=== PATIENT | female | born 1955 | race American Indian/Alaskan Native ===

== ENCOUNTER → 2016-11-23 | Outpatient (CLI) | payer OTHER | LOC: CAT 11:49 | DX: Z13.6 Encounter for screening for cardiovascular disorders (principal) ==

== ENCOUNTER → 2018-03-09 | Outpatient (CLI) | payer OTHER ==
[2018-03-09 08:34] LABS: ABSOLUTE NEUTROPHILS 3.4 thou/uL (1.4-8.2); BASOPHILS 0.5 % (0.0-2.0); EOSINOPHILS 1.9 % (0.0-3.0); HEMOGLOBIN 13.3 gm/dL (12.0-15.0); LYMPHOCYTES 26.4 % (24.0-44.0); MCH 31.7 pg (26.0-34.0); MCHC 34.1 g/dL (28.0-37.0); MCV 92.9 fL (80.0-100.0); MONOCYTES 8.4 % (1.0-8.0); PLATELET COUNT 219 thou/uL (150-400); POLYS 62.8 % (36.0-66.0); RBC 4.19 mil/uL (4.20-5.00); RDW 12.1 % (10.5-14.5); WBC 5.4 thou/uL (4.0-11.0)
[2018-03-09 08:54] LABS: CALCIUM 9.4 mg/dL (8.5-10.1); CREATININE 0.9 mg/dL (0.6-1.0); POTASSIUM 4.2 mmol/L (3.5-5.1); TOTAL BILIRUBIN 0.4 mg/dL (<0.1-1.0)
== END ==
LOC: CAT 08:08
PROVIDERS: Internal Medicine Cardiovascular Disease
DX: I48.91 Unspecified atrial fibrillation (principal); I25.10 Atherosclerotic heart disease of native coronary artery without angina pectoris; J98.11 Atelectasis

== ENCOUNTER 2018-04-01 06:53 | Observation (INO) | payer OTHER ==
[~2018-04-01] VITALS: Ht 167.6 cm; Wt 94.8 kg
[2018-04-01] VITALS (12 sets, daily range): BP systolic 103–136; BP diastolic 40–75
--- NOTE | ~2018-04-01 | EKG ---
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
--- NOTE | ~2018-04-01 | P ---
[facility] [place] [address] PROCEDURE REPORT Name: AFIA DUNBAR Room #: 210-P [facility] M.R.#: [id number] Admission: 04/01/18 Attend Phys: Eliazar Post MD Discharge: 04/02/18 Date of : 53 Report #: [id number] THIS REPORT FOR: //name// CC: Jasmyn Post PREOPERATIVE DIAGNOSIS: Paroxysmal atrial fibrillation. POSTOPERATIVE DIAGNOSIS: Paroxysmal atrial fibrillation. The patient is a 62-year-old with history of paroxysmal atrial fibrillation, here for AFib ablation. PROCEDURES PERFORMED: 1. AFib ablation, CPT code 16959. 2. Program stimulation and pacing after IV, CPT code 65635. 3. 3D mapping EP, CPT code 26142. 4. Intracardiac echo, CPT code 75739. ANESTHESIA: The patient underwent general anesthesia with no anesthesia related complications. DESCRIPTION OF PROCEDURE: The patient underwent informed consent. We discussed the details of the procedure including the risk, which include but not limited to bleeding, vascular damage, cardiac perforation as well as stroke or IL. She understood these risks and was willing to proceed. The patient was brought to the EP laboratory in a fasting and unsedated state and prepped and draped in a sterile fashion. Next, I obtained access to the right femoral vein x 3, placing an 8-British, 9-British and 7-British short sheath using the modified Seldinger technique. Next, under fluoroscopy, I placed a decapolar catheter easily in the coronary sinus and then ice catheter into the right atrium. I performed intracardiac ultrasound and created a detailed 3D geometry of the left atrium using CartoSound and then this was merged with the cardiac CT scan. She had a nice thin interatrial septum. She had a left common ostium and a right superior and right inferior pulmonary vein. The right inferior pulmonary vein had multiple early branches. The patient was systemically heparinized and a transseptal was performed using an SL1 sheath and a Othello needle. I was able to cross into the left atrium with my SL1 sheath and then I placed a Lasso catheter in the left atrium and created a detailed 3D geometry of the left atrium and voltage map which showed activation in all pulmonary veins. Next, I attempted to exchange the SL1 sheath for the cryo sheath. I was not able to advance the cryo sheath into the left atrium. I had some difficulty advancing it because I think the left common ostium made the wire not as stable as would be ideal. Therefore, I exchanged back to the SL1 sheath, placed this in the left atrium and then used a 6 mm x 4 cm Powerflex Cordis balloon, and we dilated the interatrial septum and then, I was able to [facility] [address] [place] [address] PROCEDURE REPORT Name: AFIA DUNBAR WILVER Room #: 210-P [facility] Tan Ozuna#: [id number] Admission: 04/01/18 Attend Phys: Eliazar Post MD Discharge: 04/02/18 Date of : 53 Report #: [id number] easily cross into the left atrium with the cryo sheath. At baseline, the patient was in sinus rhythm with a sinus cycle length of 1140 milliseconds, CA interval 170 milliseconds, QRS duration 88 milliseconds, QT interval 475 milliseconds. Next, I started by isolating the left common ostium. I performed 3 freezes, 3 freezes were each of 4 minutes duration. I first performed 2 freezes within the superior aspect of the common ostium with attempts at -34 degrees. I then performed a third freeze and dragged the balloon down to the inferior portion of the vein and the attempts on this freeze were -44 degrees. These 3 freezes likely isolated the common ostium. I then turned my attention to the right superior pulmonary vein, and I performed phrenic nerve pacing using the decapolar catheter. I performed a 3-minute freeze, followed by 2-minute freeze. The vein isolated within 60 seconds of the first freeze. I then turned my attention to the right inferior pulmonary vein, and I performed a 3-minute freeze followed by a 4-minute freeze, and this vein was also isolated. I then turned my attention back to the left common ostium, and this appeared to still be isolated. Given that this was a common ostium and these typically can reconnect, I performed a fourth freeze and intentionally did a freeze that was not as deep in the vein to try and widen our area of isolation. This freeze only got a temperature of -30 degrees, and this freeze was of 4 minutes duration. I removed the cryo balloon and placed my Lasso catheter into the left atrium and created a detailed 3D geometry and a voltage map, and this clearly demonstrated that we had created a wide circumferential ablation of the left common ostium and the right-sided veins. There was only a small area of activity that remained along the posterior wall. POST-ABLATION FINDINGS: Post-ablation, the patient was in sinus rhythm, EP study was performed and AV block was noted at 370 milliseconds. Atrial ERP was noted at 240 milliseconds, with a [address] cycle length. Isoproterenol was initiated at 1 mcg per minute and AV block was noted at 290 milliseconds. Atrial ERP was noted at 210 milliseconds with a [address] cycle length. No SVT, AFib or atrial flutter was induced. Next, isoproterenol was increased to 2 mcg per minute. An AV block was noted at 240 milliseconds and AV christine ERP was noted at 210 milliseconds with a [address] cycle length. Aggressive atrial pacing was performed, and I could not induce any atrial fibrillation. Post-ablation, the patient was in sinus rhythm with a sinus cycle length of 675 milliseconds. CA interval 160 milliseconds, QRS duration 90 milliseconds, QT interval 365 milliseconds. Using intracardiac ultrasound, I verified that there was no pericardial effusion. The patient then received systemic protamine and once the ACT was within acceptable range, catheters and sheaths were pulled and hemostasis was obtained. The patient awoke neurologically and hemodynamically intact. No complications and no significant bleeding. [facility] [address] [place] [address] PROCEDURE REPORT Name: AFIA DUNBAR Room #: 210-P [facility] Laith#: [id number] Admission: 04/01/18 Attend Phys: Eliazar Post MD Discharge: 04/02/18 Date of : 53 Report #: [id number] CONCLUSIONS: 1. Successful AFib ablation with isolation of the left common ostium in the right superior and right inferior pulmonary veins. 2. Normal EP study with no other inducible arrhythmias on or off isoproterenol. <ELECTRONICALLY SIGNED> By: Eliazar Post MD 04/04/18 1145 1218 1336 Eliazar Post MD /nt
[2018-04-01 07:20] LABS: ABSOLUTE NEUTROPHILS 2.9 thou/uL (1.4-8.2); BASOPHILS 0.7 % (0.0-2.0); EOSINOPHILS 2.1 % (0.0-3.0); HEMATOCRIT 37.5 % (37.0-47.0); HEMOGLOBIN 12.6 gm/dL (12.0-15.0); LYMPHOCYTES 29.9 % (24.0-44.0); MCH 31.3 pg (26.0-34.0); MCHC 33.7 g/dL (28.0-37.0); MCV 92.9 fL (80.0-100.0); PLATELET COUNT 220 thou/uL (150-400); POLYS 59.3 % (36.0-66.0); RBC 4.03 mil/uL (4.20-5.00); RDW 12.5 % (10.5-14.5); WBC 4.8 thou/uL (4.0-11.0)
[2018-04-01] MEDS ORDERED: ELIQUIS5 M1 PO (07:27)
[2018-04-01] MEDS ORDERED: PROSCAR 5MG TABL5 MG PO (07:28)
[2018-04-01] MEDS ORDERED: BIOTIN5 MG PO (07:28)
[2018-04-01] MEDS ORDERED: FLECAINIDE ACET50 M1 PO (07:28)
[2018-04-01] MEDS ORDERED: ZESTORETIC 20-1 EAC3 PO (07:29)
[2018-04-01] MEDS ORDERED: MULTI COMPLETE1 EAC1 PO (07:30)
[2018-04-01] MEDS ORDERED: TOPROL XL100 MG PO (07:30)
[2018-04-01] MEDS ORDERED: LIPITOR 20 MG T20 M1 PO (07:30)
[2018-04-01 07:31] LABS: CALCIUM 9.6 mg/dL (8.5-10.1); CREATININE 0.9 mg/dL (0.6-1.0); POTASSIUM 3.8 mmol/L (3.5-5.1)
[2018-04-01] MEDS ORDERED: TUMS PO (07:31)
[2018-04-01 07:36] LABS: ALBUMIN 3.9 g/dL (3.4-5.0); TOTAL BILIRUBIN 0.5 mg/dL (<0.1-1.0); TOTAL PROTEIN 7.8 g/dL (6.4-8.2)
[2018-04-01 07:42] LABS: APTT 24.5 Seconds (24.5-32.8); PROTIME 9.9 Seconds (9.3-11.4)
[2018-04-01] MEDS ORDERED: TOPROL XL25 MG PO (16:48)
[2018-04-02 00:40] VITALS: BP 128/66
[2018-04-02 05:51] VITALS: BP 130/63
[2018-04-02 07:43] VITALS: BP 120/57
[2018-04-02 09:36] VITALS: BP 120/57
== END 2018-04-02 12:58 | disposition home or self-care (01) ==
LOC: CATH 06:53 → 2N 13:24
PROVIDERS: Internal Medicine Cardiovascular Disease
DX: I48.0 Paroxysmal atrial fibrillation (principal); E11.9 Type 2 diabetes mellitus without complications; I10 Essential (primary) hypertension; Z79.899 Other long term (current) drug therapy
CPT/HCPCS: 62110; 62900; 65020; 65040; 70005

== ENCOUNTER 2018-12-16 06:46 | Observation (INO) | payer OTHER ==
[~2018-12-16] VITALS: Ht 167.6 cm; Wt 89.4 kg
[2018-12-16] VITALS (12 sets, daily range): BP systolic 116–159; BP diastolic 63–92
[~2018-12-16 06:46] MED LIST: BIOTIN5 MG PO; ELIQUIS5 M1 PO; FLECAINIDE ACET50 M1 PO; LIPITOR 20 MG T20 M1 PO; MULTI COMPLETE1 EAC1 PO; PROSCAR 5MG TABL5 MG PO; TOPROL XL100 MG PO; TOPROL XL25 MG PO; TUMS PO; ZESTORETIC 20-1 EAC3 PO
[2018-12-16 07:51] LABS: ABSOLUTE NEUTROPHILS 2.7 thou/uL (1.4-8.2); BASOPHILS 0.3 % (0.0-2.0); EOSINOPHILS 2.1 % (0.0-3.0); HEMATOCRIT 36.1 % (37.0-47.0); HEMOGLOBIN 12.3 gm/dL (12.0-15.0); MCH 31.1 pg (26.0-34.0); MCHC 34.1 g/dL (28.0-37.0); MCV 91.3 fL (80.0-100.0); MONOCYTES 8.9 % (1.0-8.0); PLATELET COUNT 218 thou/uL (150-400); POLYS 59.7 % (36.0-66.0); RBC 3.95 mil/uL (4.20-5.00); RDW 12.2 % (10.5-14.5); WBC 4.5 thou/uL (4.0-11.0)
[2018-12-16 08:06] LABS: CALCIUM 9.1 mg/dL (8.5-10.1); CREATININE 0.8 mg/dL (0.6-1.0); POTASSIUM 3.9 mmol/L (3.5-5.1)
[2018-12-16 08:09] LABS: APTT 22.9 Seconds (24.5-32.8); PROTIME 9.3 Seconds (9.3-11.4)
[2018-12-16 08:12] LABS: ALBUMIN 3.7 g/dL (3.4-5.0); TOTAL BILIRUBIN 0.5 mg/dL (<0.1-1.0); TOTAL PROTEIN 7.4 g/dL (6.4-8.2)
--- NOTE | 2018-12-16 13:10 | NUR ---
RECEIVED FROM PACU AFTER AFIB ABLATION. NSR ON MONITOR. VSS. SIPPING ON WATER AT BEDSIDE. WAITING FOR ROOM ASSIGNMENT.
--- NOTE | 2018-12-16 17:02 | NUR ---
ASSUMED CARE AT 1410, SHIFT ASSESSMENT DONE, VSS. POST ABLATION, RIGHT AND LEFT GROIN SITE, SITES ARE CLEAN, DRY, INTACT, SOFT TO TOUCH, NO HEMATOMA. REPORTED COUGH, PRN COUGH MEDICATION GIVEN. PENA IN PLACE, PRODUCING ADEQUATE OUTPUT. DENIES ANY PAIN, NSR ON TELE, ROOM AIR. WILL CONTINUE TO ASSESS AND ASSIST WITH ADLs NEEDED.
--- NOTE | 2018-12-16 19:31 | NUR ---
OFF OF BEDREST AT 1830, EPNA WAS TAKEN OUT, ABLE TO URINATE IN THE BATHROOM. RIGHT AND LEFT GROIN SITE LOOKS CLEAN/DRY/INTACT, SOFT TO TOUCH, NO HEMATOMA. REPROT GIVEN TO NIGHT NURSE
[2018-12-17 04:57] VITALS: BP 146/70
--- NOTE | 2018-12-17 08:52 | NUR ---
ASSUME CARE 1900. PT/VITALS STABLE. DENIES ANY PAIN. COMPLAINS OF COUGHING EPISODES. ASSESSMENT CHARTED. PROGRESSING WELL WITH POC. PLAN IS POSSIBLE DISCHARGE TODAY. R/L MILLER CALDERÓN CDI. WILL CONTINUE TO MONITOR AND FOLLOW WITH POC
[2018-12-17 08:53] VITALS: BP 140/59
--- NOTE | 2018-12-17 09:54 | NUR ---
BILAT GROIN SITES CDI WITH NO HEMATOMA. LUNG SOUNDS CLEAR AND PT DENIES SOB. WILL DC TO HOME PER DR. BEDOLLA.
[2018-12-17 10:44] VITALS: BP 140/59
--- NOTE | 2018-12-19 12:52 | P ---
[facility] [place] [address] PROCEDURE REPORT Name: AFIA DUNBAR Room #: 219-P [facility] M.R.#: [id number] Admission: 12/16/18 Attend Phys: Eliazar Post MD Discharge: 12/17/18 Date of : 53 Report #: [id number] THIS REPORT FOR: //name// CC: Jasmyn Post DATE OF SERVICE: 12/16/2018 PREOPERATIVE DIAGNOSES: Paroxysmal atrial fibrillation and atrial flutter. POSTOPERATIVE DIAGNOSES: Paroxysmal atrial fibrillation and atrial flutter. HISTORY: The patient is 62-year-old status post prior AFib ablation who has had clinical recurrence who is here for AFib and atrial flutter ablation. PROCEDURES PERFORMED: 1. Atrial fibrillation ablation, CPT code 26944. 2. 3D mapping, CPT code 14677. 3. Arterial line placement, CPT code 57614. 4. Intracardiac echo, CPT code 54320. 5. Focal ablation, CPT code 31181. 6. Atrial flutter ablation, second pathway ablation, CPT code 35681. ANESTHESIA: The patient underwent general anesthesia with no anesthesia related complications. DESCRIPTION OF PROCEDURE: The patient underwent informed consent. We discussed the details of the procedure including the risks, which include but not limited to bleeding, infection, vascular damage, stroke, DC as well as damage to the [place] conduction system. She understood these risks and is willing to proceed. The patient was brought to the EP laboratory in a fasting and sedated state and prepped and draped in a standard fashion. I then injected lidocaine to the groins and obtained access to the bilateral femoral veins. In the right femoral vein, I placed two 8 and a 9-Martiniquais short sheath and in the left femoral vein, I placed a 7-Martiniquais short sheath using the modified Seldinger technique. In the right femoral artery, I placed a 4-Martiniquais sheath for arterial pressure monitoring. Next, I placed the PentaRay catheter in the right atrium and created a detailed 3D geometry of the right atrium. I then placed the Lasso catheter into the coronary sinus without any difficulties. Next, the patient was systemically heparinized. I made 3 attempts to cross the septum. The first attempt, I was able to advance a wire into the left atrium, but could not advance the sheath and actually lost access to the left atrium. I then attempted again and performed slightly more inferior stick, but I could not advance at this location. I therefore pulled out of this location and then I performed a third attempt at a more mid septal and anterior location right [address] [address] PROCEDURE REPORT Name: AFIA DUNBAR Room #: 219-P [facility] Tan M.R.#: [id number] Admission: 12/16/18 Attend Phys: Eliazar Post MD Discharge: 12/17/18 Date of : 53 Report #: [id number] across from the left common ostium. From this site, I was able to cross with the SL1 into the left atrium. Prior to transseptal, the patient was systemically heparinized. Next, using the PentaRay catheter, I created a detailed 3D geometry and voltage map of the left atrium. This showed that the left common ostium was reconnected inferiorly and the two right veins remained isolated. Therefore, I removed the PentaRay from the left atrium and placed a 4 mm Biosense Rivera SmartTouch ablation catheter into the left atrium. I first isolated the left common ostium, both posteriorly and inferiorly. Next, a roofline was created along the posterior roof of the left atrium. I extended this inferiorly as well. I did closely monitor esophageal temperatures during ablation here and I decreased my ahmadi along the posterior wall and we saw no significant rise in esophageal temperature during these ablation lesions. I then performed a second voltage map, but there was still persistent electrograms along the roof region. Therefore, I went in and did several additional ablation lesions. A repeat map was performed and showed that we had created a wide circumferential ablation of the left common ostium and created a block across the roof. As such, the procedure was concluded on the left side. ATRIAL FLUTTER ABLATION: Next, I went to the right atrium, exchanged my SL1 sheath for a ramp sheath and placed the SmartTouch ThermoCool ablation catheter into the right atrium. Prior to ablation, the transisthmus conduction time was 60 milliseconds. I created continuous drag lesion at 40 minor until I fell into the IVC. I rechecked my line and there was still evidence of conduction. Therefore, I performed additional ablation along my previous line and then found some large electrograms that we had not ablated quite yet. After my second line, we checked conduction and now there was evidence of bidirectional block with transisthmus conduction time of 135 milliseconds. As such, the procedure was concluded. Using intracardiac ultrasound, I verified there was no pericardial effusion. Prior to ablation, the patient was in sinus rhythm with a sinus cycle length of 990 milliseconds, NE interval 120 milliseconds, QRS duration 90 milliseconds, QT interval 470 milliseconds. Post-ablation, the patient remained in sinus rhythm. There were no procedure related complications. CONCLUSIONS: 1. Successful atrial fibrillation ablation with isolation of the left common ostium. 2. Successful creation of a left atrial roofline. 3. Successful atrial flutter ablation with evidence of bidirectional block. <ELECTRONICALLY SIGNED> By: Eliazar Post MD 12/19/18 1252 1248 2221 Eliazar Post MD /nt
== END 2018-12-17 11:07 | disposition home or self-care (01) ==
LOC: CATH 06:46 → 2N 13:50 → CATH 14:54 → 2N 12-17 11:07
PROVIDERS: ADMIT Internal Medicine Cardiovascular Disease
DX: I48.0 Paroxysmal atrial fibrillation (principal); I48.92 Unspecified atrial flutter; I11.9 Hypertensive heart disease without heart failure; Z79.899 Other long term (current) drug therapy
CPT/HCPCS: 62110; 62900; 65020; 65040; 70005

== ENCOUNTER → 2020-01-30 | Outpatient (CLI) | payer OTHER | LOC: SJCVC 10:22 | PROVIDERS: ATTEND Internal Medicine Cardiovascular Disease | DX: I48.0 Paroxysmal atrial fibrillation (principal); R94.31 Abnormal electrocardiogram [ECG] [EKG]; G47.33 Obstructive sleep apnea (adult) (pediatric); E66.01 Morbid (severe) obesity due to excess calories; I10 Essential (primary) hypertension; E11.9 Type 2 diabetes mellitus without complications; Z79.4 Long term (current) use of insulin; Z79.899 Other long term (current) drug therapy ==

== ENCOUNTER → 2020-07-30 | Outpatient (CLI) | payer OTHER | LOC: CAT 10:56 | PROVIDERS: ATTEND Internal Medicine Cardiovascular Disease | DX: Z13.6 Encounter for screening for cardiovascular disorders (principal); I25.10 Atherosclerotic heart disease of native coronary artery without angina pectoris; E78.00 Pure hypercholesterolemia, unspecified ==

== ENCOUNTER → 2020-07-30 | Outpatient (CLI) | payer OTHER | LOC: SJCVC 10:11 | PROVIDERS: ATTEND Internal Medicine Cardiovascular Disease | DX: I48.0 Paroxysmal atrial fibrillation (principal); I48.3 Typical atrial flutter; D64.9 Anemia, unspecified; E11.9 Type 2 diabetes mellitus without complications; E78.5 Hyperlipidemia, unspecified; I10 Essential (primary) hypertension; K57.90 Diverticulosis of intestine, part unspecified, without perforation or abscess without bleeding; A15.9 Respiratory tuberculosis unspecified; G47.33 Obstructive sleep apnea (adult) (pediatric); Z79.899 Other long term (current) drug therapy; Z86.018 Personal history of other benign neoplasm; Z86.16 Personal history of COVID-19 ==

== ENCOUNTER → 2020-08-20 | Outpatient (CLI) | payer OTHER, MEDICARE | LOC: SJCVCIMAG 07:07 | PROVIDERS: ATTEND Internal Medicine Cardiovascular Disease | DX: I48.0 Paroxysmal atrial fibrillation (principal); I10 Essential (primary) hypertension; I25.10 Atherosclerotic heart disease of native coronary artery without angina pectoris; G47.33 Obstructive sleep apnea (adult) (pediatric); E78.5 Hyperlipidemia, unspecified; E11.9 Type 2 diabetes mellitus without complications; D64.9 Anemia, unspecified; Z86.16 Personal history of COVID-19; Z79.899 Other long term (current) drug therapy; Z88.8 Allergy status to other drugs, medicaments and biological substances; Z72.89 Other problems related to lifestyle ==

== ENCOUNTER 2020-09-03 16:30 | Observation (INO) | payer OTHER, MEDICARE ==
[~2020-09-03] VITALS: Ht 167.6 cm; Wt 87.5 kg
[2020-09-03 15:40] VITALS: BP 151/88
[~2020-09-03 16:30] MED LIST changes: -TAMBOCOR 100 M100 M1 PO
[2020-09-03 17:14] LABS: HEMATOCRIT 34.5 % (37.0-47.0); HEMOGLOBIN 11.8 gm/dL (12.0-15.0); MCH 31.7 pg (26.0-34.0); MCHC 34.3 g/dL (28.0-37.0); MCV 92.4 fL (80.0-100.0); RBC 3.74 mil/uL (4.20-5.00); RDW 12.3 % (10.5-14.5); WBC 8.8 thou/uL (4.0-11.0)
[2020-09-03 17:23] LABS: CALCIUM 8.9 mg/dL (8.5-10.1); CREATININE 1.3 mg/dL (0.6-1.0); POTASSIUM 4.1 mmol/L (3.5-5.1)
--- NOTE | 2020-09-03 18:04 | NUR ---
DIRECT ADMISSION TO THE UNIT HR 201 UPON ADMISSION, NO SYMPTOMS AT THIS TIME, PT RESTING IN BED AND STATES SHE HAS BEEN INTERMENTENT FASTING AND IS WORRIED THIS CAUSED THE ELEVATED HEART RATE, LINE STARTED IN LFOREARM, CARDIZEM GTT STARTED AT 15 HR NOW 102 GTT DOWN TO 5. VS STABLE AT THIS TIME AND NO ADVERSE EFFECTS NOTED, CALL LIGHT IN REACH 2L NC ON PT
[2020-09-03 18:17] VITALS: BP 115/77
[2020-09-03 20:15] VITALS: BP 132/73
[2020-09-04 00:04] VITALS: BP 127/88
[2020-09-04 04:45] VITALS: BP 120/68
--- NOTE | 2020-09-04 07:15 | NUR ---
PATIENTS CARE WERE ASSUMED AT SHIFT CHANGE. PATIENT WAS ASSESSED AND MEDS WERE PASSED. THE GTT WAS TURND OFF AT SHIFT CHANGE DUE TO THREE CONSECITIVE HOURS OF STABLE HEART RATE AND B/P. ALL DOCUMENTED IN THE CHART. PATIENT HAS BEEN NPO SINCE MIDNIGHT FOR HER DENVER AND A CARDIO VERSION. ROUNDING WAS DONE. THE BED IS IN A LOW AND LOCKED POSITION. THE BED ALARM IS ON.
[2020-09-04 07:54] VITALS: BP 123/70
--- NOTE | 2020-09-04 09:35 | TEE ---
[facility] [place] [address] TRANSESOPHAGEAL ECHOCARDIOGRAM Name: AFIA DUNBAR Room #: 215-P [facility] M.R.#: [id number] Admission: 09/03/20 Attend Phys: Eliazar Post MD Discharge: Date of : 53 Report #: [id number] THIS REPORT FOR: cc: Jasmyn Grande MD, Lisa A. MD Santiago, Patrick MD [facility] ~ APPROVED REPORT Study performed: 09/04/2020 08:27:11 EXAM: Comprehensive 2D, Doppler, and color-flow Echocardiogram Patient Location: In-Patient Room #: 215 Status: routine BSA: 1.97 HR: 87 bpm BP: 136/65 mmHg Rhythm: Atrial Fibrillation Other Information Study Quality: Good Indications Atrial Fibrillation Echo Enhancing Agent Indication: Rule out Shunt Agent(s) / Amount(s) Used: Agitated Saline 7 cc Procedure After obtaining informed consent, patient underwent transesophageal echo in the [employer]. Type of Sedation : Conscious Sedation Sedation was administered by Leticia Stapleton RN. Sedation start time: 854 Case end Time: 900 Sedation was achieved intravenously with: Versed (6 mg) Fentanyl (75 mcg) Transesophageal probe was inserted and advanced into esophagus without difficulty by Kyree De Jesus MD. Echo enhancement indication: R/O Septal defect. Echo enhancement agent administered: Agitated Saline The DENVER was performed without complications. Synchronized Cardioversion acheived with 120 Joules after 1 [facility] [address] [place] [address] TRANSESOPHAGEAL ECHOCARDIOGRAM Name: AFIA DUNBAR Room #: 215-P [facility] [place] .R.#: [id number] Admission: 09/03/20 Attend Phys: Eliazar Post Discharge: Date of : 53 Report #: [id number] attempt(s). Rhythm following Synchronized Cardioversion: Sinus Bradycardia Throughout the procedure, the blood pressure, pulse oximetry, cardiac rhythm, and rate were monitored. The patient tolerated the procedure without adverse effects. Recovery from conscious sedation was uneventful and vital signs were stable. Left Ventricle The left ventricle is normal size. There is normal LV segmental wall motion. There is normal left ventricular wall thickness. The left ventricular systolic function is normal. The left ventricular ejection fraction is within the normal range. LVEF is 55-60%. Right Ventricle The right ventricle is normal size. The right ventricular systolic function is normal. Atria Left atrium is dilated. No thrombus is visualized in the left atrium or appendage. Interatrial septum is intact without evidence of ASD or PFO. Right atrium is dilated. Aortic Valve The aortic valve is normal in structure. No aortic regurgitation is present. There is no aortic valvular stenosis. Mitral Valve The mitral valve is normal in structure. Trace to mild mitral regurgitation. No evidence of mitral valve stenosis. Tricuspid Valve The tricuspid valve is normal in structure. There is no tricuspid valve regurgitation noted. Pulmonic Valve The pulmonary valve is normal in structure. There is no pulmonic valvular regurgitation. Great Vessels The aortic root is normal in size. Pericardium There is no pericardial effusion. <Conclusion> [facility] [employer] [place] [address] TRANSESOPHAGEAL ECHOCARDIOGRAM Name: AFIA DUNBAR Room #: 215-P [facility] [place] ..#: [id number] Admission: 09/03/20 Attend Phys: Eliazar Post Discharge: Date of : 53 Report #: [id number] Atrial fibrillation at baseline Consent was obtained Timeout was performed Esophageal probe was advanced without difficulty after appropriate sedation Left atrial appendage, small, no obvious mass or clot detected. Mild biatrial enlargement Normal left ventricular size/wall thickness ejection fraction 60% Normal aortic/mitral valve structure and function No evidence of tricuspid valve insufficiency No evidence of ASD/VSD by color-flow Doppler study No pericardial effusion Aorta no calcification Patient successfully cardioverted to sinus rhythm after 120 J in a biphasic mode Patient tolerated procedure well Twelve-lead ECG pending. <ELECTRONICALLY SIGNED> By: Kyree De Jesus MD, [facility] 09/04/20 0935 0935 Kyree De Jesus MD, FACC /INF
[2020-09-04] MEDS ORDERED: TAMBOCOR 100 M100 M1 PO (09:57)
[2020-09-04 10:36] VITALS: BP 123/70
[2020-09-04 11:04] VITALS: BP 94/54
--- NOTE | 2020-09-04 11:36 | EKG ---
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1955 Requested By: Cortney Cruz Order Number: [id number] MD: Kyree De Jesus Measurements Intervals [place] Rate: 91 P: [place]: QRS: -1 QRSD: 97 T: -28 QT: 398 QTc: 490 Interpretive Statements Atrial fibrillation Abnormal R-wave progression, late transition Inferior infarct, age indeterminate Compared to ECG 04/02/2018 09:27:04 Sinus rhythm no longer present Left ventricular hypertrophy no longer present Myocardial infarct finding still present Electronically Signed On 09-04-2020 11:36:42 CDT by Kyree De Jesus [email or web address] <ELECTRONICALLY SIGNED> By: Kyree De Jesus MD, FAC 09/04/20 1136 0753 0753 Kyree De Jesus MD, [facility] /EPI
--- NOTE | 2020-09-04 11:37 | EKG ---
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 <ELECTRONICALLY SIGNED> By: Kyree De Jesus MD, [facility] 09/04/20 1137 0938 Kyree De Jesus MD, FAC /EPI
--- NOTE | 2020-09-06 15:18 | D ---
[facility] [place] [address] DISCHARGE SUMMARY Name: AFIA DUNBAR Room #: 215-P [facility] Tan M.R.#: [id number] Admission: 09/03/20 Attend Phys: Eliazar Post MD Discharge: 09/04/20 Date of : 53 Report #: [id number] THIS REPORT FOR: cc: Jasmyn Grande MD, Lisa A. MD Couchonnal, Luis F. MD ~ DOC #: [id number] Eliazar Post MD DATE OF SERVICE: 09/04/2020 DISCHARGE DIAGNOSES: 1. Atypical atrial flutter. 2. Atrial fibrillation. The patient is a 64-year-old female status post AFib ablation x 2. She called in a few days ago stating she is having increased palpitations. She presented to the Electrophysiology clinic in atypical atrial flutter going at 180-200 beats per minute. Therefore, I recommended admission to the hospital. HOSPITAL COURSE: She was admitted to the hospital and started diltiazem drip overnight. Her flecainide dose was increased and on the day of discharge, she underwent a DENVER-guided cardioversion with successful church of sinus rhythm. As such, she was deemed stable for discharge home on higher dose of flecainide 100 b.i.d. She is to continue with her current anticoagulation regimen and her other home medications. We will schedule her for outpatient repeat AFib and atrial flutter ablation. Eliazar Post MD LFC/NIT <ELECTRONICALLY SIGNED> By: Eliazar Post MD 09/06/20 1518 0925 1614 Eliazar Post MD /nt
== END 2020-09-04 12:43 | disposition home or self-care (01) ==
LOC: 2N 16:30
PROVIDERS: Nurse Practitioner; ADMIT Internal Medicine Cardiovascular Disease; ATTEND Internal Medicine Cardiovascular Disease
DX: I48.92 Unspecified atrial flutter (principal); I48.0 Paroxysmal atrial fibrillation; I25.10 Atherosclerotic heart disease of native coronary artery without angina pectoris; G47.33 Obstructive sleep apnea (adult) (pediatric); Z79.899 Other long term (current) drug therapy

== ENCOUNTER → 2020-09-03 | Outpatient (CLI) | payer OTHER, MEDICARE ==
[~2020-09-03] MED LIST changes: +TAMBOCOR 100 M100 M1 PO
== END ==
LOC: SJCVC 15:51
PROVIDERS: ATTEND Internal Medicine Cardiovascular Disease
DX: R94.31 Abnormal electrocardiogram [ECG] [EKG] (principal); I45.4 Nonspecific intraventricular block; I47.1 Supraventricular tachycardia; I48.0 Paroxysmal atrial fibrillation; I48.3 Typical atrial flutter; I10 Essential (primary) hypertension; I25.10 Atherosclerotic heart disease of native coronary artery without angina pectoris; G47.33 Obstructive sleep apnea (adult) (pediatric); E11.9 Type 2 diabetes mellitus without complications; E78.5 Hyperlipidemia, unspecified; Z98.890 Other specified postprocedural states; Z88.8 Allergy status to other drugs, medicaments and biological substances; Z79.899 Other long term (current) drug therapy; Z82.49 Family history of ischemic heart disease and other diseases of the circulatory system; Z86.16 Personal history of COVID-19

== ENCOUNTER 2020-12-13 06:40 | Inpatient (IN) | payer OTHER, MEDICARE ==
[~2020-12-13] VITALS: Ht 167.6 cm; Wt 94.3 kg
[2020-12-13] VITALS (10 sets, daily range): BP systolic 133–158; BP diastolic 53–97
[~2020-12-13 06:40] MED LIST changes: +TAMBOCOR 100 M100 M1 PO
[2020-12-13] MEDS ORDERED: CRESTOR20 MG PO (07:56)
[2020-12-13 08:22] LABS: ABSOLUTE NEUTROPHILS 2.9 thou/uL (1.4-8.2); BASOPHILS 0.7 % (0.0-2.0); EOSINOPHILS 3.1 % (0.0-3.0); HEMATOCRIT 35.1 % (37.0-47.0); LYMPHOCYTES 28.1 % (24.0-44.0); MCH 32.2 pg (26.0-34.0); MCHC 34.3 g/dL (28.0-37.0); MCV 93.8 fL (80.0-100.0); MONOCYTES 9.5 % (1.0-8.0); PLATELET COUNT 198 thou/uL (150-400); POLYS 58.6 % (36.0-66.0); RBC 3.74 mil/uL (4.20-5.00); WBC 4.9 thou/uL (4.0-11.0)
[2020-12-13 08:40] LABS: APTT 23.2 Seconds (24.5-32.8); INR 0.9; POTASSIUM 3.7 mmol/L (3.5-5.1); PROTIME 9.5 Seconds (9.3-11.4)
[2020-12-13 08:46] LABS: ALBUMIN 3.7 g/dL (3.4-5.0); TOTAL BILIRUBIN 0.4 mg/dL (0.2-1.0); TOTAL PROTEIN 7.2 g/dL (6.4-8.2)
[2020-12-13] MEDS ORDERED: HEARTBURN PREVE20 MG PO (13:35)
--- NOTE | 2020-12-13 15:01 | NUR ---
RECEIVED PT FROM PACU. PT IS POST CATH ABLATION. VSS, AFEBRILE, SR ON THE MONITOR. PT R GROIN SITE, DILCIA DRESSING, C/D/I, NO HEMATOMA. BEDREST 4 HOURS. ADMISSION COMPLETED. FALL PRECAUTIONS IN PLACE. NO CONCERNS AT THIS TIME.
[2020-12-14 03:52] VITALS: BP 181/66
[2020-12-14 06:12] VITALS: BP 151/63
[2020-12-14 07:00] VITALS: BP 153/72
--- NOTE | 2020-12-14 07:43 | NUR ---
pt resting on and off thru the night, with intermittent JOYA, prn pain meds given and ice pack, bp elevated this am and am metoprolol given early back down to 151/63, hr remains nsr, hoping to go home this am. will con't to monitor per ppoc.
[2020-12-14 11:15] VITALS: BP 138/56
[2020-12-14 11:42] VITALS: BP 138/56
--- NOTE | 2020-12-23 15:15 | P ---
[facility] [place] [address] PROCEDURE REPORT Name: AFIA DUNBAR Room #: 210-P [facility] IN M.R.#: [id number] Admission: 12/13/20 Attend Phys: Eliazar Post MD Discharge: 12/14/20 Date of : 53 Report #: [id number] THIS REPORT FOR: cc: Jasmyn Grande MD, Lisa A. MD Couchonnal,Eliazar Concepcion MD ~ DATE OF SERVICE: 12/13/2020 PREOPERATIVE DIAGNOSES: 1. Atrial fibrillation. 2. Atypical atrial flutter. POSTOPERATIVE DIAGNOSES: 1. Atrial fibrillation. 2. Mitral annular flutter. 3. Typical atrial flutter. HISTORY: The patient is a 64-year-old female status post atrial fibrillation ablation x2, recently seen in my clinic, was presented in an atypical flutter at 200 beats per minute. She was admitted and underwent a [place]-guided cardioversion the following day, she is here for repeat ablation. ANESTHESIA: The patient underwent general anesthesia with no anesthesia related complications. PROCEDURES PERFORMED: 1. Comprehensive EP study, CPT code 35374. 2. AFib ablation, CPT code 49429. 3. 3D mapping, CPT code 31271. 4. Intracardiac echo, CPT code 47913. 5. Focal ablation, CPT code 23572. 6. Second pathway ablation, CPT code 83085. DESCRIPTION OF PROCEDURE: The patient underwent informed consent. We discussed the details of the procedure including the risks include but not limited to bleeding, vascular damage, stroke, AL, cardiac perforation. She and her understood these risks and are willing to proceed. The patient was brought to the EP laboratory in a fasting and sedated state, prepped and draped in a sterile fashion. At baseline, the patient was in sinus rhythm. I obtained access to the right femoral vein x3, placing an 8, 9 and 7-[place] short sheath using the modified Seldinger technique. Next, under fluoroscopy, decapolar catheter was placed into the coronary sinus, ICE catheter was placed in the right atrium. Using intracardiac ultrasound, created both left and right atrial anatomy. The left atrium had evidence of a left common into right-sided veins. Next, a basic EP study was performed and AV block was [address] [address] PROCEDURE REPORT Name: AFIA DUNBAR Room #: 210-[facility] IN .R.#: [id number] Admission: 12/13/20 Attend Phys: Eliazar Post MD Discharge: 12/14/20 Date of : 53 Report #: [id number] noted at 370 milliseconds. Atrial ERP was noted at 190 milliseconds at a [address] cycle length with atrial burst pacing down to 240 milliseconds. The patient went into an atrial flutter for about 10 seconds and then degenerated into atrial fibrillation. The patient was prepped for transseptal. Transseptal was performed using an Agilis sheath and this was straightforward. I then placed a Lasso catheter in the left atrium and created a 3D voltage map of the left atrium. This showed that the pulmonary veins remained isolated from the prior procedure, but there was a reconnection of the posterior wall with extensive fractionated atrial electrograms along the posterior wall. Therefore, I started by isolating the posterior wall. I started by creating a roofline from the left common ostium to the right-sided veins. There was only a slight area of reconnection along the roof and a narrow area of reconnection along the posterior wall as well. I then started by creating a line from the right inferior to the left inferior pulmonary vein. As I completed my posterior wall isolation below the left common ostium, the atrial fibrillation terminated. I therefore repeated a voltage map and there was still evidence of a posterior wall activity. With catheter manipulation, the patient went into an atypical atrial flutter that looked like it was likely mitral annular. The cycle length was about 240 milliseconds. As such, I continued ablating to isolate the remainder of the posterior wall and this atrial flutter organized to another atrial flutter that was proximal to distal along the coronary sinus at 330 milliseconds with a ventricular cycle length of 330 milliseconds as well. This resulted in hypotension and therefore, I performed a 200 joule cardioversion with orthodox of sinus rhythm. There was no evidence of pericardial effusion and the drop in blood pressure was just due to this rapid atrial flutter. Given the evidence of a mitral annulus flutter, I did perform a flutter line connecting the mitral valve to the left common ostium. Extensive ablation was performed here and I completed the ablation of the posterior wall. A repeat voltage map was then created and now the entire posterior wall was isolated and there was evidence of block at the mitral line ablation. A repeat EP study was performed and atrial burst pacing down to 230 milliseconds resulted in an atrial flutter with a tachycardia cycle length of 300 milliseconds in a proximal to distal activation along the coronary sinus. I therefore attempted to entrain this from the right atrium, but this terminated tachycardia. I therefore reinduced this tachycardia and created an activation map of the right atrium and this map was consistent with cavotricuspid isthmus dependent flutter to complete this map. I did have to reduce this flutter 3 or 4 times as it would terminate when I would place my PentaRay at the isthmus site. Therefore, preablation transisthmus conduction time was 110 milliseconds. There was emanated evidence of fractionated atrial signals along the isthmus. Ablation was performed at 40 minor and a continuous drag lesion was performed at this site until it fell into the IVC. I then checked and the transisthmus conduction time was now 160 milliseconds with an activation sequence consistent with bidirectional block. [facility] [address] [place] [address] PROCEDURE REPORT Name: FAIA DUNBAR Room #: 210-P [facility] IN [facility].#: [id number] Admission: 12/13/20 Attend Phys: Eliazar Post MD Discharge: 12/14/20 Date of : 53 Report #: [id number] Using intracardiac ultrasound, I verified there was no pericardial effusion. The patient received systemic protamine and once the ACT was within acceptable range, all catheters and sheaths were pulled. Of note, while performing a posterior wall isolation, esophageal temperatures were monitored with esophageal probe and a short ablation lesions of 5-7 seconds were performed near the esophagus with no significant rise in esophageal temperatures. CONCLUSION: 1. Successful AFib ablation with isolation of the posterior wall. 2. Successful mitral annular flutter ablation. 3. Successful cavotricuspid isthmus-dependent flutter ablation with evidence of bidirectional block. <ELECTRONICALLY SIGNED> By: Eliazar Post MD 12/23/20 1515 [id number] Eliazar Post MD /rose
== END 2020-12-14 12:32 | disposition home or self-care (01) | DRG 274 ==
LOC: CATH 06:40 → 2N 13:42
PROVIDERS: ADMIT Internal Medicine Cardiovascular Disease; ATTEND Internal Medicine Cardiovascular Disease
PROC: 4A0234Z Measurement of Cardiac Electrical Activity, Percutaneous Approach (ICD-10-PCS; principal; 2020-12-13)
PROC: 02583ZZ Destruction of Conduction Mechanism, Percutaneous Approach (ICD-10-PCS; principal; 2020-12-13)
PROC: 4A023FZ Measurement of Cardiac Rhythm, Percutaneous Approach (ICD-10-PCS; principal; 2020-12-13)
PROC: 02K83ZZ Map Conduction Mechanism, Percutaneous Approach (ICD-10-PCS; principal; 2020-12-13)
DX: I48.91 Unspecified atrial fibrillation (principal); I48.92 Unspecified atrial flutter; I10 Essential (primary) hypertension; I25.10 Atherosclerotic heart disease of native coronary artery without angina pectoris; G47.33 Obstructive sleep apnea (adult) (pediatric); Z20.822 Contact with and (suspected) exposure to COVID-19; Z79.01 Long term (current) use of anticoagulants; Z86.16 Personal history of COVID-19
CPT/HCPCS: 10081; 62110; 62900; 65020; 70005

== ENCOUNTER → 2021-02-26 | Outpatient (CLI) | payer OTHER, MEDICARE ==
[~2021-02-26] MED LIST changes: +CRESTOR20 MG PO; +HEARTBURN PREVE20 MG PO
== END ==
LOC: SJCVC 15:18
PROVIDERS: ATTEND Internal Medicine Cardiovascular Disease
DX: R93.1 Abnormal findings on diagnostic imaging of heart and coronary circulation (principal); I10 Essential (primary) hypertension; E78.2 Mixed hyperlipidemia; I48.0 Paroxysmal atrial fibrillation; I48.3 Typical atrial flutter; G47.33 Obstructive sleep apnea (adult) (pediatric); E11.9 Type 2 diabetes mellitus without complications; E78.5 Hyperlipidemia, unspecified; A15.9 Respiratory tuberculosis unspecified; I25.2 Old myocardial infarction; D68.59 Other primary thrombophilia; Z99.89 Dependence on other enabling machines and devices; Z82.49 Family history of ischemic heart disease and other diseases of the circulatory system; Z79.899 Other long term (current) drug therapy; Z72.89 Other problems related to lifestyle; Z88.8 Allergy status to other drugs, medicaments and biological substances

== ENCOUNTER → 2021-03-11 | Outpatient (CLI) | payer OTHER, MEDICARE | LOC: SJCVC 11:27 | PROVIDERS: ATTEND Internal Medicine Cardiovascular Disease | DX: R94.31 Abnormal electrocardiogram [ECG] [EKG] (principal); R00.1 Bradycardia, unspecified; I48.3 Typical atrial flutter; I48.0 Paroxysmal atrial fibrillation; I10 Essential (primary) hypertension; E11.9 Type 2 diabetes mellitus without complications; I25.10 Atherosclerotic heart disease of native coronary artery without angina pectoris; E78.5 Hyperlipidemia, unspecified; G47.33 Obstructive sleep apnea (adult) (pediatric); Z86.16 Personal history of COVID-19; Z88.8 Allergy status to other drugs, medicaments and biological substances; Z72.89 Other problems related to lifestyle; Z82.49 Family history of ischemic heart disease and other diseases of the circulatory system; Z79.899 Other long term (current) drug therapy ==